=== PATIENT | male | born 1990 | race Caucasian/White ===

== ENCOUNTER 2020-01-31 10:09 | Inpatient (IN) ==
[2020-01-31] MEDS ORDERED: ONDANSETRON 4 MG/2 ML VIAL IV STA (11:00)
[2020-01-31] MEDS ORDERED: SODIUM CHLORIDE 0.9% 1,000 ML IV STA ×2 (11:00→13:24)
[2020-01-31] MEDS ORDERED: MEPERIDINE 50 MG/1 ML VIAL IV STA ×2 (11:02→12:35)
[2020-01-31 11:25] LABS: Basophils % 0.5 % (0.0-0.8); Eosinophils % 0.5 % (0.00-10.9); Hematocrit 42.1 VOL% (42.0-52.0); Hemoglobin 14.2 GM/DL (14.0-18.0); Immature Granulocytes % 0.4 %; Immature Granulocytes Absolute 0.03 #; Lymphocytes # 0.5 10*3/uL (1.4-4.0); Lymphocytes % 6.2 % (21.2-54.2); Mean Corpuscular HGB Conc 33.7 GM/DL (32-36); Mean Corpuscular Volume 86.8 FL (87-102); Monocytes % 11.5 % (1.7-12.7); Neutrophils % 80.9 % (38.7-73.9); Platelet Count 150 T/CUMM (130-400); Red Blood Count 4.85 MC/CUMM (3.8-5.5); Red Cell Distribution Width 14.5 % (9.3-17.3); White Blood Count 8.4 T/CUMM (4-12)
[2020-01-31 11:57] LABS: Albumin 3.1 G/DL (3.4-5.0); Bilirubin,Total 2.3 MG/DL (0.2-1.0); Calcium 9.4 MG/DL (8.5-10.1); Osmolality,Calculated 262.5 MOS/KG (273-304); Total Protein 7.4 G/DL (6.4-8.3)
[2020-01-31 14:01] LABS: Apearance,Urine CLEAR (Clear); Bilirubin,Urine Negative (Negative); Blood, Urine Moderate mg/dL (Negative); Glucose,Urine (UA) Negative (Negative); Ketones,Urine Negative (Negative); Nitrite,Urine Negative (Negative); Protein,Urine Negative; RBC,Urine 3 /HPF (0-4); Urine Color Yellow (Yellow); Urine Specific Gravity 1.057 (1.001-1.035); WBC,Urine 2 /HPF (0-6)
[2020-01-31] MEDS ORDERED: ACETAMINOPHEN 325 MG TABLET PO PRN (14:36)
[2020-01-31] MEDS ORDERED: hydrALAZINE 20 MG/1 ML VIAL IV PRN (14:36)
[2020-01-31] MEDS ORDERED: DOCUSATE SODIUM 100 MG CAPSULE PO PRN (14:36)
[2020-01-31] MEDS ORDERED: guaiFENesin/DM ER 600-30 MG TABLET PO PRN (14:36)
[2020-01-31] MEDS ORDERED: GLUCAGON 1 MG VIAL IM PRN (14:36)
[2020-01-31] MEDS ORDERED: ONDANSETRON 4 MG/2 ML VIAL IV PRN (14:36)
[2020-01-31] MEDS ORDERED: DEXTROSE 50% 25 GM/50 ML VIAL IV PRN (14:36)
[2020-01-31] MEDS ORDERED: oxyCODONE/ACETAMINOPHEN 5-325 MG TABLET PO PRN (14:40)
[2020-01-31] MEDS ORDERED: MEPERIDINE 50 MG/1 ML VIAL IV PRN (14:46)
[2020-01-31 15:27] LABS: Risk Ratio 5.93; Thyroid Stimulating Hormone 1.99 uIU/ml (0.358-3.74); VLDL CHOLESTEROL 21.6 MG/DL
[2020-01-31] MEDS ORDERED: fentaNYL 25 MCG/HR PATCH TRANSDERM SCH (17:00)
[2020-01-31] MEDS: SODIUM CHLORIDE 0.9% 1,000 ML IV SCH (17:26)
[2020-01-31] MEDS ORDERED: NALOXONE 0.4 MG/ML VIAL IV PRN (18:11)
[2020-01-31] MEDS ORDERED: cefTRIAXone 1,000 MG in SYRINGE 1 EACH IV ONE (18:18)
[2020-01-31] MEDS ORDERED: HYDROmorphone PCA 30 MG/30 ML SYRINGE IV SCH (18:30)
[2020-02-01] MEDS: SODIUM CHLORIDE 0.9% 1,000 ML IV SCH ×2 (03:06→16:17)
[2020-02-01 06:33] LABS: Basophils % 0.3 % (0.0-0.8); Eosinophils # 0.1 10*3/uL (0.0-0.87); Eosinophils % 0.7 % (0.00-10.9); Hemoglobin 13.2 GM/DL (14.0-18.0); Immature Granulocytes % 0.6 %; Immature Granulocytes Absolute 0.04 #; Lymphocytes # 0.5 10*3/uL (1.4-4.0); Lymphocytes % 7.1 % (21.2-54.2); Mean Corpuscular HGB Conc 33.8 GM/DL (32-36); Mean Corpuscular Volume 87.2 FL (87-102); Mean Platelet Volume 9.1 FL (9.6-12.0); Monocytes % 11.8 % (1.7-12.7); Neutrophils % 79.5 % (38.7-73.9); Platelet Count 142 T/CUMM (130-400); Red Blood Count 4.47 MC/CUMM (3.8-5.5); Red Cell Distribution Width 14.6 % (9.3-17.3); White Blood Count 7.1 T/CUMM (4-12)
[2020-02-01 06:54] LABS: Albumin 2.8 G/DL (3.4-5.0); Bilirubin,Total 2.1 MG/DL (0.2-1.0); Calcium 9.2 MG/DL (8.5-10.1); Osmolality,Calculated 272.7 MOS/KG (273-304); Total Protein 6.8 G/DL (6.4-8.3)
[2020-02-01] MEDS ORDERED: cefTRIAXone 1,000 MG VIAL ONE (08:00)
[2020-02-01 08:50] LABS: Platelet Estimate Adequate
[2020-02-01] MEDS ORDERED: propofoL 200 MG/20 ML VIAL IV ONE (08:55)
[2020-02-01] MEDS ORDERED: DEXAMETHASONE 4 MG/1 ML VIAL ONE (08:56)
[2020-02-01] MEDS ORDERED: LIDOCAINE 2% 5 ML VIAL ONE (08:56)
[2020-02-01] MEDS ORDERED: ONDANSETRON 4 MG/2 ML VIAL ONE (08:56)
[2020-02-01] MEDS ORDERED: MIDAZOLAM 2 MG/2 ML VIAL ONE (08:56)
[2020-02-01] MEDS ORDERED: SEVOFLURANE 1 UNIT/15 MINUTE INH ONE (08:56)
[2020-02-01] MEDS ORDERED: LACTATED RINGERS 1,000 ML IV ONE (08:56)
[2020-02-01] MEDS ORDERED: fentaNYL 100 MCG/2 ML VIAL ONE (08:56)
[2020-02-01 12:04] VITALS: BP 130/82
== END 2020-02-01 16:08 | disposition home or self-care (01) | DRG 660 ==
LOC: N.ED 10:09 → N.EDINP 13:55 → N.4E 16:09
PROVIDERS: ADMIT Internal Medicine; ATTEND Internal Medicine